=== PATIENT | female | born 1950 | race Caucasian/White ===

== ENCOUNTER 2021-11-28 03:58 | Emergency (ER) | payer OTHER, SELFPAY ==
[2021-11-28] VITALS (8 sets, daily range): BP systolic 133–170; BP diastolic 63–86; PULSE 64–88; RESP 16–24; TEMP 36.4–36.8; O2SAT 94–98; BMI 26.6
--- NOTE | ~2021-11-28 | XR_ITS ---
EXAMINATION: XR SHOULDER, LEFT CLINICAL INFORMATION: Left shoulder pain since fall COMPARISON: None TECHNIQUE: Four views of the left shoulder. XR/XR shoulder LT min 2V FINDINGS/IMPRESSION: There is a comminuted fracture involving the left humeral neck with impaction and 2.7 cm of medial displacement of distal fracture fragment. There is no glenohumeral dislocation. Degenerative changes are present at the glenohumeral joint
--- NOTE | 2021-11-28 05:37 | PC.NURSE ---
UPON ARRIVAL PATIENT WAS INCONTINENT OF URINE DEVAN CARE GIVEN AND PATIENT WAS CHANGE INTO HOSPITAL ATTIRE ,PERWICK IN PLACE .
--- NOTE | 2021-11-28 06:37 | ED_ITS ---
HPI - General Adult General Chief complaint: Extremity Problem Stated complaint: PAIN D/T RECENT ARM FX FROM SNF Time Seen by Provider: 11/28/21 06:37 Source: patient Mode of arrival: EMS Limitations: no limitations History of Present Illness HPI narrative: 71 yo female with hx of HTN, PTSD, just fell and treated for L humerus fx at [facility] had coaptation splint on which she removed - due to it not being comfortable. She was sent to rehab [facility] didn't like it and asked to be sent to the ED she is c/o needing a new rehab. complaint: wants a new rehab Onset (ago): day(s) (1) Location: left and upper extremity Radiation: non-radiation Severity: moderate Quality: aching Pain Consistency: constant Relieving factors: immobilization Exacerbating factors: movement Associated symptoms: other (notes some mild dysuria) Treatments prior to arrival: none Related Data Allergies Allergy/AdvReac Type Severity Reaction Status Date / Time amylase [From Creon] Allergy Vomiting Verified 11/28/21 07:04 chlordiazepoxide Allergy Unknown Verified 11/28/21 07:04 [From Librium] chlorpromazine Allergy Hives Verified 11/28/21 07:04 diphenhydramine Allergy Unknown Verified 11/28/21 07:04 [From Benadryl] fluconazole Allergy Swelling Verified 11/28/21 07:04 lipase [From Creon] Allergy Vomiting Verified 11/28/21 07:04 lithium Allergy Unknown Verified 11/28/21 07:04 metronidazole [From Flagyl] Allergy Unknown Verified 11/28/21 07:04 phenazopyridine Allergy Unknown Verified 11/28/21 07:04 [From Pyridium] protease [From Creon] Allergy Vomiting Verified 11/28/21 07:04 varenicline Allergy Confusion Verified 11/28/21 07:04 Review of Systems Review of Systems: Constitutional : No Fever, No Chills ENT/Mouth : No Ear Pain, No Hoarseness, No sore throat Eyes: No Eye Pain, No Swelling, No Redness, No Foreign Body Cardiovascular : No Chest Pain, No SOB Respiratory : No Cough, No Dyspnea Gastrointestinal : No Nausea, No Vomiting, No Diarrhea, No abdominal Pain Genitourinary : pos Dysuria, No Hematuria Musculoskeletal : positive joint pain, No Myalgias, No Joint Swelling Skin : No Skin lacerations, No rash Neuro : No Weakness, No Numbness, No Loss of Consciousness, No Dizziness, No Headache Psych : No Anxiety/Panic, No Depression Heme/Lymph: no easy bruising, no Lymphadenopathy Endocrine : No Polyuria, No Polydipsia All other systems reviewed and are negative PMFSH Past Medical History Attestation statement: The following information was validated with the patient. Medical History HTN (hypertension) Humerus fracture PTSD (post-traumatic stress disorder) Social History Social History (Updated 11/28/21 @ 06:55 by Yanet Chadwick DO) Patient Tobacco Use Status: Tobacco use Unknown Advance Directives: No Advance Directives Information Provided: Yes Physical Exam ED Vital Signs: Vital Signs - 24 hr 11/28/21 04:37 11/28/21 05:36 Temperature 98.0 F 98.2 F Pulse Rate 67 64 Respiratory Rate 24 H 16 Blood Pressure 157/74 H 170/74 H Pulse Oximetry 98 98 Oxygen Delivery Method Room Air Room Air BMI result Body Mass Index 26.6 Appearance: Alert. Oriented X3. No acute distress. Eyes: Pupils equal, round and reactive to light. ENT: Pharynx normal. Neck: Normal inspection. Neck supple. CVS: Normal heart rate and rhythm. Pulses normal. Respiratory: No respiratory distress. Breath sounds normal. Abdomen: Soft and nontender. Skin: Skin warm and dry. Normal skin color. Normal skin turgor. Extremities: No lower extremity edema. L humerus prox ttp distal NV intact Neuro: Oriented X 3. No motor deficit. No sensory deficit. Course Course Course Narrative: xray read from [facility] reports at least one shaft width apart displacement seems similar today orthopedics aware of film - splint and outpatient followup Patient placed in physician observation at 847am. The indication for observati on is that the patient needs more time for CM to help in placement At this time the patient is well developed well nourished, lungs clear, CV RRR, abd nontender, neuro is intact. Procedures Orthopedic Splinting/Casting Injury #1: Side: left Upper Extremity Injury Location: upper arm Upper Extremity Immobilizer: sling/shoulder immobilizer Medical Decision Making MDM Narrative Medical decision making narrative: 71 yo female with hx of HTN, PTSD, depression with recent L humerus fracture removed her sling. She is here asking for a new sling. At this time will place in sling - repeat xray as coaptation is off. Labs check UA and refer to CM. Lab Data Result diagrams: 11/28/21 07:30 11/28/21 07:30 Labs: Lab Results 11/28/21 11/28/21 11/28/21 Range/Units 07:24 07:30 07:30 WBC 10.0 (4.8-10.8) X10*3/uL RBC 3.42 L (4.20-5.50) X10*6/uL Hgb 11.7 L (12.0-16.0) g/dl Hct 34.7 L (37.0-47.0) % MCV 101.5 H (80.0-98.0) fL MCH 34.2 H (27.0-33.0) pg MCHC 33.7 (31.0-35.0) g/dl RDW 12.4 (11.0-16.0) % Plt Count 507 H (160-400) X10*3/uL MPV 9.0 L (9.4-12.3) fL Immature Gran % (Auto) 0.4 (0.0-0.4) % Neut % (Auto) 62.2 (45-73) % Lymph % (Auto) 22.7 (20-40) % [place] % (Auto) 11.1 H (2-11) % Eos % (Auto) 3.1 (0-4) % Baso % (Auto) 0.5 (0-2) % Lymph # (Auto) 2.3 (1.2-4.9) X10*3/uL [place] # (Auto) 1.1 (0.1-1.2) X10*3/uL Eos # (Auto) 0.3 (0.0-0.4) X10*3/uL Baso # (Auto) 0.1 (0.0-0.2) X10*3/uL Abs Immat Gran (auto) 0.04 H (0.00-0.03) X10*3/uL Absolute Neuts (auto) 6.2 (2.0-8.3) x10*3/uL Absolute Nucleated RBC 0.000 (0.0-0.012) X10*3/uL Nucleated RBC % (auto) 0.0 (0.0-0.2) /100WBC Sodium 137 (135-145) mmol/L Potassium 4.7 (3.3-5.1) mmol/L Chloride 100 (96-108) mmol/L Carbon Dioxide 26 (22-29) mmol/L Anion Gap 16 (12-20) BUN 21 H (9-16) mg/dL Creatinine 0.87 (0.5-1.4) mg/dL Estim Creat Clear Calc 57.0 Estimated GFR > 60 Random Glucose 100 (60-115) mg/dL Calcium 9.9 (8.4-10.2) mg/dL Urine Color Yellow Urine Appearance Clear Urine pH >= 9.0 (5.0-9.0) Ur Specific [place] 1.010 (1.005-1.025) Urine Protein Negative (Neg-Trace) mg/dL Urine Glucose (UA) Negative (Negative) mg/dL Urine Ketones Trace (Negative) mg/dL Urine Blood Negative (Negative) Urine Nitrite Negative (Negative) Ur Leukocyte Esterase Negative (Negative) COVID-19 ([facility]) (Negative) COVID-19 Clin Com 11/28/21 Range/Units 07:31 WBC (4.8-10.8) X10*3/uL RBC (4.20-5.50) X10*6/uL Hgb (12.0-16.0) g/dl Hct (37.0-47.0) % MCV (80.0-98.0) fL MCH (27.0-33.0) pg MCHC (31.0-35.0) g/dl RDW (11.0-16.0) % Plt Count (160-400) X10*3/uL MPV (9.4-12.3) fL Immature Gran % (Auto) (0.0-0.4) % Neut % (Auto) (45-73) % Lymph % (Auto) (20-40) % [place] % (Auto) (2-11) % Eos % (Auto) (0-4) % Baso % (Auto) (0-2) % Lymph # (Auto) (1.2-4.9) X10*3/uL [place] # (Auto) (0.1-1.2) X10*3/uL Eos # (Auto) (0.0-0.4) X10*3/uL Baso # (Auto) (0.0-0.2) X10*3/uL Abs Immat Gran (auto) (0.00-0.03) X10*3/uL Absolute Neuts (auto) (2.0-8.3) x10*3/uL Absolute Nucleated RBC (0.0-0.012) X10*3/uL Nucleated RBC % (auto) (0.0-0.2) /100WBC Sodium (135-145) mmol/L Potassium (3.3-5.1) mmol/L Chloride (96-108) mmol/L Carbon Dioxide (22-29) mmol/L Anion Gap (12-20) BUN (9-16) mg/dL Creatinine (0.5-1.4) mg/dL Estim Creat Clear Calc Estimated GFR Random Glucose (60-115) mg/dL Calcium (8.4-10.2) mg/dL Urine Color Urine Appearance Urine pH (5.0-9.0) Ur Specific [place] (1.005-1.025) Urine Protein (Neg-Trace) mg/dL Urine Glucose (UA) (Negative) mg/dL Urine Ketones (Negative) mg/dL Urine Blood (Negative) Urine Nitrite (Negative) Ur Leukocyte Esterase (Negative) COVID-19 ([facility]) Negative (Negative) COVID-19 Clin Com See Note Discharge Plan Discharge Clinical Impression: Fracture of proximal end of humerus Patient Disposition: Still a Patient
[2021-11-28 07:35] LABS: MANUAL DIFF FLAG NO
[2021-11-28 07:38] LABS: Appearance Urine Clear; Color Urine Yellow; Glucose Urine UA Negative (Negative); Leukocyte Esterase Urine Negative (Negative); Nitrite Urine Negative (Negative); PH >= 9.0 (5.0-9.0); Urine Blood Negative (Negative); Urine Ketones Trace mg/dL (Negative); Urine Protein Negative (Neg-Trace)
[2021-11-28 07:41] LABS: Basophils Absolute Auto 0.1 X10*3/uL (0.0-0.2); Basophils Percent Auto 0.5 % (0-2); Eosinophils Absolute Auto 0.3 X10*3/uL (0.0-0.4); Eosinophils Percent Auto 3.1 % (0-4); Hematocrit 34.7 % (37.0-47.0); Hemoglobin 11.7 g/dl (12.0-16.0); Imm Gran Abs Auto 0.04 X10*3/uL (0.00-0.03); Imm Gran Pct Auto 0.4 % (0.0-0.4); Lymphocytes Absolute Auto 2.3 X10*3/uL (1.2-4.9); Lymphocytes Percent Auto 22.7 % (20-40); Mean Corpuscular HGB Conc 33.7 g/dl (31.0-35.0); Mean Corpuscular Hemoglobin 34.2 pg (27.0-33.0); Mean Corpuscular Volume 101.5 fL (80.0-98.0); Monocytes Absolute Auto 1.1 X10*3/uL (0.1-1.2); Monocytes Percent Auto 11.1 % (2-11); Neutrophils Absolute Auto 6.2 x10*3/uL (2.0-8.3); Neutrophils Percent Auto 62.2 % (45-73); Platelet Count 507 X10*3/uL (160-400); Red Blood Count 3.42 X10*6/uL (4.20-5.50); Red Cell Distribution Width 12.4 % (11.0-16.0)
[2021-11-28 07:52] LABS: COVID-19 Test Negative (Negative)
[2021-11-28 07:53] LABS: Anion Gap 16 (12-20); Blood Urea Nitrogen 21 mg/dL (9-16); Calcium 9.9 mg/dL (8.4-10.2); Carbon Dioxide 26 mmol/L (22-29); Chloride 100 mmol/L (96-108); Estimated Glomerular Filt Rate > 60; Glucose Random 100 mg/dL (60-115); Potassium 4.7 mmol/L (3.3-5.1); Sodium 137 mmol/L (135-145)
--- NOTE | 2021-11-28 08:20 | PC.NURSE ---
Pt assisted with reposition, PO intake provided. Call boyle within reach.
[2021-11-28] MEDS: oxyCODONE HCl Immed Release 5 MG TABLET PO ×2 (08:53→17:39)
--- NOTE | 2021-11-28 09:05 | PHA.MEDREC ---
Pharmacy Consult ? Medication Reconciliation Pharmacy has completed the medication reconciliation. Used list obtained from [facility].
[2021-11-28] MEDS: Albuterol Sulfate (0.083%) 2.5 MG/3 ML VIAL.NEB INHALE (12:36)
--- NOTE | 2021-11-28 12:46 | MHC.CM.ED ---
Received case management consult overnight. Patient was discharged from [facility] on 11/27 and discharged to [facility]. Patient did not care for the facility and requested EMS bring her back to [facility]. EMS khushi patient to [facility] due to their staffing issues. Met with patient in regards to discharge planning. Patient was living alone, ambulates with a cane and had no services. PCP verified as Dr Renea Bourne. Copy of HCP obtained from [facility]. Patient received 2 Covid vaccines and a booster. [facility] has been to [facility] the past. That is patient's first choice for placement. Patient aware bed available is limited and is agreeable to referral being broadcasted in [facility]. Continue to monitor for d/c needs.
--- NOTE | 2021-11-28 13:35 | MHC.CM.ED ---
Received call from Neetu Anthony at [facility]. They're reviewing patient's clinical now to see if they will be able to offer a bed. If so, may not be able to offer a bed until tomorrow 11/29. Continue to monitor for d/c needs.
--- NOTE | 2021-11-28 14:47 | MHC.CM.ED ---
Received notification from MARILYN Landis that patient is requesting to go home with VNA. Met with patient. Patient feels she can safely go home. T/W reached out to Pema at [facility] to see if they will authorize [facility]. Received notification from JUSTINO White that patient just tried to get up and change her clothes. Patient does not feel she can go home. Will continue search for short term rehab bed with [facility] 1[facility] choice. Continue to [facility] for d/c needs.
[2021-11-28] MEDS: Cholecalciferol (Vitamin D3) 25 MCG TABLET PO (15:55)
[2021-11-28] MEDS: Levothyroxine Sodium 75 MCG TABLET PO (15:56)
[2021-11-28] MEDS: Montelukast Sodium 10 MG TABLET PO (15:56)
[2021-11-28] MEDS: Multivitamin TABLET 1 TAB PO (15:56)
[2021-11-28] MEDS: Cyanocobalamin (Vitamin B-12) 1,000 MCG TABLET 1000 MCG PO (15:56)
[2021-11-28] MEDS: FLUoxetine HCl 10 MG CAPSULE PO (15:56)
[2021-11-28] MEDS: Cyclobenzaprine HCl 5 MG TABLET PO ×2 (15:56→22:03)
[2021-11-28] MEDS: Magnesium Oxide 400 MG TABLET PO (15:56)
--- NOTE | 2021-11-28 16:00 | PC.NURSE ---
assumed care of pt at 1500, pt a&ox3, vss, medicated per provider order, pharmacy contacted for remaining medication - meds delayed per prior nurse due to hold up w pharmacy. pt reporting 8/10 left shoulder pain, pt's baseline pain is 7/10. plan was for pt to return home w VNA services, but after attempting to ambulate independently to bathroom pt realized she needs a higher level of care. case management aware, pt looking for placement at [facility]. no new orders at this time.
--- NOTE | 2021-11-28 17:04 | PC.NURSE ---
PATIENT WAS AN ASSIST OF 1 FOR AMBULATION TO AND FROM BATHROOM .
[2021-11-28] MEDS: Propranolol HCL 40 MG TABLET PO ×2 (17:39→22:03)
--- NOTE | 2021-11-28 17:39 | PC.NURSE ---
medicated per provider order, no new orders at this time, pt a&ox3, resting quietly in bed.
[2021-11-28] MEDS: Melatonin 3 MG TABLET 18 MG PO (22:03)
[2021-11-28] MEDS: Omeprazole 20 MG CAPSULE.DR PO (22:03)
--- NOTE | 2021-11-28 22:16 | PC.NURSE ---
pt a&ox3, vss, reporting 7/10 pain - baseline for pt, metmucil held - pt has been having loose stool or a few days, medicated per provider order, warm blanket provided, no new orders at this time.
[2021-11-29] MEDS: Levothyroxine Sodium 75 MCG TABLET PO (06:30)
[2021-11-29 08:12] VITALS: BP 152/54; PULSE 61; RESP 16; TEMP 36.9; O2SAT 93
[2021-11-29] MEDS: Cyclobenzaprine HCl 5 MG TABLET PO ×3 (08:14→20:38)
[2021-11-29] MEDS: Montelukast Sodium 10 MG TABLET PO (08:14)
[2021-11-29] MEDS: Cyanocobalamin (Vitamin B-12) 1,000 MCG TABLET 1000 MCG PO (08:14)
[2021-11-29] MEDS: Omeprazole 20 MG CAPSULE.DR PO ×2 (08:14→20:38)
[2021-11-29] MEDS: Cholecalciferol (Vitamin D3) 25 MCG TABLET PO (08:14)
[2021-11-29] MEDS: FLUoxetine HCl 10 MG CAPSULE PO (08:14)
[2021-11-29] MEDS: Magnesium Oxide 400 MG TABLET PO (08:14)
[2021-11-29] MEDS: Multivitamin TABLET 1 TAB PO (08:14)
[2021-11-29] MEDS: oxyCODONE HCl Immed Release 5 MG TABLET PO ×3 (08:20→20:38)
[2021-11-29 09:27] VITALS: BP 132/70; RESP 24; TEMP 36.6; O2SAT 91
[2021-11-29] MEDS: Propranolol HCL 40 MG TABLET PO ×3 (09:51→22:18)
[2021-11-29] MEDS: Acetaminophen 325 MG TABLET 650 MG PO (10:38)
[2021-11-29 11:43] VITALS: BP 132/70; O2SAT 91
--- NOTE | 2021-11-29 14:20 | MHC.CM.ED ---
Discussed PT eval findings and [facility] unavailability with pt. Pt verbalized concern with going to another STR. I tried [facility] and hated it Inquired on how pt would manage at home to which she states, I think terribly Pt does not have family or other care assistance. She is active with [facility] for monthly RN visits and 2x weekly homemaking care. I'd need someone to help me with everything...going to the bathroom, getting dressed, meals... Pt has been accepted to [facility] . She wishes to wait until her sister in law arrives today at 3pm to visit before making a decision. CM to keep [facility] open until pt decides.
[2021-11-29 14:27] VITALS: BP 133/59; PULSE 70; RESP 18; O2SAT 95
[2021-11-29] MEDS: Zolpidem Tartrate 5 MG TABLET 10 MG PO (20:38)
[2021-11-29 20:42] VITALS: BP 154/71; PULSE 77; RESP 14; O2SAT 97
[2021-11-29 22:00] VITALS: BP 139/68; PULSE 64; RESP 16; TEMP 36.9; O2SAT 98
--- NOTE | 2021-11-29 22:16 | PC.NURSE ---
PATIENT VOIDED X 4 ONTO BEDSIDE COMMODE ,HAD SMALL BOWEL MOVEMENT ,PATIENT ATE 100 % OF DINNER DINNER DRANK 480 ML OF FLUIDS
[2021-11-30] MEDS: oxyCODONE HCl Immed Release 5 MG TABLET PO ×3 (05:43→21:50)
[2021-11-30 06:00] VITALS: BP 139/61; PULSE 55; O2SAT 95
[2021-11-30] MEDS: Levothyroxine Sodium 75 MCG TABLET PO (06:37)
[2021-11-30 07:15] VITALS: BP 149/71; PULSE 62; RESP 12; TEMP 36.6; O2SAT 93
[2021-11-30 09:13] VITALS: BP 164/73; PULSE 60; RESP 16; O2SAT 95
[2021-11-30] MEDS: Cholecalciferol (Vitamin D3) 25 MCG TABLET PO (10:05)
[2021-11-30] MEDS: FLUoxetine HCl 10 MG CAPSULE PO (10:05)
[2021-11-30] MEDS: Omeprazole 20 MG CAPSULE.DR PO ×2 (10:05→21:51)
[2021-11-30] MEDS: Cyclobenzaprine HCl 5 MG TABLET PO ×3 (10:05→21:51)
[2021-11-30] MEDS: Cyanocobalamin (Vitamin B-12) 1,000 MCG TABLET 1000 MCG PO (10:05)
[2021-11-30] MEDS: Magnesium Oxide 400 MG TABLET PO (10:05)
[2021-11-30] MEDS: Montelukast Sodium 10 MG TABLET PO (10:06)
[2021-11-30] MEDS: Propranolol HCL 40 MG TABLET PO ×2 (10:06→22:44)
[2021-11-30] MEDS: Multivitamin TABLET 1 TAB PO (10:06)
--- NOTE | 2021-11-30 10:41 | MHC.CM.ED ---
Patient remains in ER overflow. [facility] is only facility able to offer a bed. [facility] still doesn't have any beds. Patient doesn't feel she can safely go home but is unsure she wants to go to [facility]. Patient's sister in law/HCP, Lacey did not come to the ER last night. Patient is okay with T/W calling Lacey. Attempted to reach Lacey via telephone at [phone]. Left message requesting return telephone call. Continue to monitor for d/c needs.
--- NOTE | 2021-11-30 12:42 | MHC.CM.ED ---
Received return telephone call from patient's sister in law, Lacey. Lacey will speak to patient about facility choices. Spoke with Gina after Lacey spoke with patient. Gina is requesting to go home with [facility]. [facility]. [facility] booked for next available. Patient aware arranging transportation has been difficult at this time. Continue to monitor for d/c needs.
[2021-11-30 21:16] VITALS: BP 166/68; PULSE 66; O2SAT 94
[2021-11-30] MEDS: Zolpidem Tartrate 5 MG TABLET 10 MG PO (21:51)
--- NOTE | 2021-11-30 21:53 | PC.NURSE ---
PT MEDICATED P0ER MAR ORDERS. GIVEN OXYCODONE PRN FOR 9/10 PAIN TO LEFT SHOULDER. NO OTHER COMPLAINTS. VITALS SIGNS UPDATED. PT RESTING COMFORTABLY.. CALL BURNS WITHIN REACH.
[2021-12-01 02:51] VITALS: BP 167/68; PULSE 67; RESP 16; O2SAT 97
[2021-12-01 06:32] VITALS: BP 144/78; PULSE 64; RESP 16; O2SAT 94
[2021-12-01] MEDS: Levothyroxine Sodium 75 MCG TABLET PO (06:40)
[2021-12-01] MEDS: Multivitamin TABLET 1 TAB PO (10:11)
[2021-12-01] MEDS: Montelukast Sodium 10 MG TABLET PO (10:11)
[2021-12-01] MEDS: Magnesium Oxide 400 MG TABLET PO (10:11)
[2021-12-01] MEDS: Cyanocobalamin (Vitamin B-12) 1,000 MCG TABLET 1000 MCG PO (10:11)
[2021-12-01] MEDS: Omeprazole 20 MG CAPSULE.DR PO (10:11)
[2021-12-01] MEDS: Cyclobenzaprine HCl 5 MG TABLET PO (10:12)
[2021-12-01] MEDS: FLUoxetine HCl 10 MG CAPSULE PO (10:12)
[2021-12-01] MEDS: Cholecalciferol (Vitamin D3) 25 MCG TABLET PO (10:12)
== END 2021-12-01 10:53 | disposition home or self-care (01) ==
PROVIDERS: Emergency Provider Emergency Medicine; PCP Family Medicine
DX: S42.402A Unspecified fracture of lower end of left humerus, initial encounter for closed fracture (principal); M25.512 Pain in left shoulder; I10 Essential (primary) hypertension; W01.0XXA Fall on same level from slipping, tripping and stumbling without subsequent striking against object, initial encounter; Y93.9 Activity, unspecified; Y92.9 Unspecified place or not applicable; Z20.822 Contact with and (suspected) exposure to COVID-19; Y99.9 Unspecified external cause status; Z79.899 Other long term (current) drug therapy
CPT/HCPCS: 29105; 73030; 80048; 81003; 85025; 87635; 94640; 97161; 99285